=== PATIENT | male | born 1955 | race Asian ===

== ENCOUNTER 2017-03-26 15:36 | Emergency (ER) | payer OTHER ==
[~2017-03-26] VITALS: Ht 167.6 cm; Wt 73.1 kg
[2017-03-26 15:42] VITALS: Ht 167.6 cm; Wt 73.1 kg
--- NOTE | 2017-03-26 16:23 | ERD ---
ER Documentation Chief Complaint Chief Complaint Patient states lack of sleep x 1 week needs evaluation HPI This is a 62-year-old gentleman history of depression and insomnia. The patient states that he is having difficulty sleeping over the last several days. He is asking for help. The patient starts by giving a history back to 1998. He gives a prolonged and protracted history of URI type symptoms and depression symptoms in the past. Eventually he is able to describe that he needs some help sleeping. The patient is already prescribed Seroquel for sleep aid that he takes in the evening. The patient was seen by an urgent care 2 days ago and referred to primary care physician. He is a primary care appointment in April. He has not seen a psychiatrist and "sometimes ". The patient denies any homicidal or suicidal ideations, no hallucinations. He states that he is also having difficulty sleeping because of dry nose. ROS All systems reviewed and are negative except as per history of present illness. FmHx Family History: No diabetes Physical Exam Vitals Vital Signs Date Time Temp Pulse Resp B/P Pulse Ox O2 Delivery O2 Flow Rate FiO2 03/26/17 15:42 98.1 85 20 158/87 97 Physical Exam General: Well developed, well nourished, no acute distress Head: Normocephalic, atraumatic. Eyes: EOM intact ENT: Moist mucous membranes Neck: Full ROM Respiratory: No respiratory distress Cardiovascular: Good capillary refill Abdominal: Nondistended : Deferred MSK: No edema, no unilateral swelling, 5/5 strength Neurologic: Alert and oriented, moving all extremities, normal speech, steady gait Skin: No rash Psych: Slightly anxious, no significant depression, no suicidal or homicidal ideation, no hallucinations, moderate insight Procedures/MDM The patient presents for insomnia. The patient is already taking Seroquel for sleep aid in the evening. I do not feel comfortable adding Ambien in this patient that I do not have regular follow-up with. I believe the combination of Seroquel and Ambien may be creating more risk than benefit. The patient is to follow-up with his primary care physician for regular outpatient dosing. Additionally he needs to be regularly seeing a psychiatrist. The patient states that Benadryl has worked for him in the past. I believe trying this would be reasonable. Additionally the patient can use a home humidifier. At this point I feel the patient is safe for discharge. Local resources provided to the patient. Departure Diagnosis: Primary Impression: Insomnia Insomnia type: unspecified Qualified Code: G47.00 - Insomnia, unspecified type Condition: Stable Patient Instructions: Treating Insomnia Referrals: [facility] YOU HAVE RECEIVED A MEDICAL SCREENING EXAM AND THE RESULTS INDICATE THAT YOU DO NOT HAVE A CONDITION THAT REQUIRES URGENT TREATMENT IN THE EMERGENCY DEPARTMENT. FURTHER EVALUATION AND TREATMENT OF YOUR CONDITION CAN WAIT UNTIL YOU ARE SEEN IN YOUR DOCTORS OFFICE WITHIN THE NEXT 1-2 DAYS. IT IS YOUR RESPONSIBILITY TO MAKE AN APPOINTMENT FOR FOLOW-UP CARE. IF YOU HAVE A PRIMARY DOCTOR --you should call your primary doctor and schedule an appointment IF YOU DO NOT HAVE A PRIMARY DOCTOR YOU CAN CALL OUR PHYSICIAN REFERRAL HOTLINE AT IF YOU CAN NOT AFFORD TO SEE A PHYSICIAN YOU CAN CHOSE FROM THE FOLLOWING [facility] [address] [facility] [address] [facility] [address] [facility] [address] [facility] [address] [facility] [facility] [address] [facility] [facility] [address] [facility] YOU HAVE RECEIVED A MEDICAL SCREENING EXAM AND THE RESULTS INDICATE THAT YOU DO NOT HAVE A CONDITION THAT REQUIRES URGENT TREATMENT IN THE EMERGENCY DEPARTMENT. FURTHER EVALUATION AND TREATMENT OF YOUR CONDITION CAN WAIT UNTIL YOU ARE SEEN IN YOUR DOCTORS OFFICE WITHIN THE NEXT 1-2 DAYS. IT IS YOUR RESPONSIBILITY TO MAKE AN APPOINTMENT FOR FOLOW-UP CARE. IF YOU HAVE A PRIMARY DOCTOR --you should call your primary doctor and schedule and appointment IF YOU DO NOT HAVE A PRIMARY DOCTOR YOU CAN CALL OUR PHYSICIAN REFERRAL HOTLINE AT . IF YOU CAN NOT AFFORD TO SEE A PHYSICIAN YOU CAN CHOSE FROM THE FOLLOWING [facility]: [facility] [address] [place] [address] [facility] [address] [place] [address] [facility] [address] [place] [address] [facility] Psychiatry for depression and insomnia Additional Instructions: Call your primary care doctor TOMORROW for an appointment during the next 1 WEEK.Tell the departmental secretary that you were referred from this facility.See the doctor sooner or return here if your condition worsens before your appointment time. DENISE MANN MD Mar 26, 2017 16:23
== END 2017-03-26 18:18 | disposition home or self-care (01) ==
LOC: E/R 15:36
DX: G47.00 Insomnia, unspecified (principal)
CPT/HCPCS: 99282